=== PATIENT | male | born 1960 | race Caucasian/White ===

== ENCOUNTER → 2018-02-27 | Emergency (ER) | payer OTHER ==
[~2018-02-27] VITALS: Ht 182.9 cm; Wt 86.2 kg
== END | disposition home or self-care (01) ==
LOC: ER 11:53
DX: I10 Essential (primary) hypertension (principal)

== ENCOUNTER 2020-07-12 07:40 | Outpatient (CLI) | payer OTHER | END 2020-07-12 07:53 | disposition home or self-care (01) | LOC: TOM 07:40 | PROVIDERS: ATTEND Specialist | DX: N30.00 Acute cystitis without hematuria (principal) ==